=== PATIENT | female | born 1995 | race Caucasian/White ===

== ENCOUNTER 2017-02-20 11:31 | Outpatient (CLI) | payer OTHER ==
[2017-02-20 12:22] LABS: APPEARANCE,URINE SLIGHTLY-CLOUDY; BILIRUBIN,URINE NEGATIVE (NEGATIVE); GLUCOSE, URINE NEGATIVE (NEGATIVE); KETONES,URINE NEGATIVE (NEGATIVE); LEUKOCYTE ESTERASE,URINE NEGATIVE (NEGATIVE); NITRITE,URINE NEGATIVE (NEGATIVE); PROTEIN,URINE NEGATIVE (NEGATIVE); URINE SPECIFIC GRAVITY 1.011; UROBILINOGEN,URINE NEGATIVE mg/dL (<2.0)
[2017-02-20 12:23] LABS: AMNISURE (ROM) NEGATIVE (NEGATIVE)
--- NOTE | 2017-02-20 12:51 | Non Stress Test Report ---
Non Stress Test Datetime Report Generated by CPN: 02/20/2017 12:51 DEMOGRAPHIC EGA NST: 37.1 INDICATION Indication for Study: Other Indication for Study (NST) Other: LABOR CHECK- ?SROM MONITORING Monitor Explained: Monitor Explained; Test Explained; Patient Verbalized Understanding Time on Monitor: 02/20/2017 11:58 Time off Monitor: 02/20/2017 12:29 NST Duration: 31 NST INTERVENTIONS NST Interventions: PO Hydration; Reposition Patient Physician Notified NST: J HUA, CNM BABY A: [id number] BABY A Movement : Present Contraction Frequency : RARE FHR Baseline : 135 Accelerations : 10X10 Decelerations : None Variability : Moderate 6-25bpm NST Review: Meets Criteria for Reactive NST NST Review and Verified By : D Bellavance RNC NST REPORT Report Trigger: Send Report
[2017-02-20 12:59] LABS: URINE BARBITURATES SCREEN NEGATIVE; URINE METHADONE SCREEN NEGATIVE; URINE OPIATES LOW NEGATIVE; URINE PHENCYCLIDINE SCREEN NEGATIVE
== END 2017-02-20 12:35 | disposition home or self-care (01) ==
LOC: LC 11:31
PROVIDERS: ATTEND Student in an Organized Health Care Education/Training Program
PROC: 4A1HXCZ Monitoring of Products of Conception, Cardiac Rate, External Approach (ICD-10-PCS; principal; 2017-02-20)
DX: Z36 Encounter for antenatal screening of mother (principal); Z3A.37 37 weeks gestation of pregnancy
CPT/HCPCS: 59025; 80307; 81005; 84112

== ENCOUNTER 2017-02-25 15:44 | Outpatient (CLI) | payer OTHER ==
[2017-02-25 16:08] LABS: APPEARANCE,URINE CLOUDY; BILIRUBIN,URINE NEGATIVE (NEGATIVE); GLUCOSE, URINE NEGATIVE (NEGATIVE); KETONES,URINE 80 mg/dL (NEGATIVE); LEUKOCYTE ESTERASE,URINE SMALL (NEGATIVE); NITRITE,URINE NEGATIVE (NEGATIVE); PROTEIN,URINE NEGATIVE (NEGATIVE); URINE SPECIFIC GRAVITY 1.013; UROBILINOGEN,URINE NEGATIVE mg/dL (<2.0)
[2017-02-25 16:24] LABS: URINE BARBITURATES SCREEN NEGATIVE; URINE METHADONE SCREEN NEGATIVE; URINE OPIATES LOW NEGATIVE; URINE PHENCYCLIDINE SCREEN NEGATIVE
--- NOTE | 2017-02-25 17:30 | Non Stress Test Report ---
Non Stress Test Datetime Report Generated by CPN: 02/25/2017 17:30 DEMOGRAPHIC EGA NST: 37.6 INDICATION Indication for Study: Other Indication for Study (NST) Other: LC MONITORING Monitor Explained: Monitor Explained; Test Explained; Patient Verbalized Understanding Time on Monitor: 02/25/2017 16:01 Time off Monitor: 02/25/2017 16:35 NST Duration: 34 NST INTERVENTIONS NST Interventions: None; IV Fluids; Reposition Patient Physician Notified NST: Dr Baez BABY A: [id number] BABY A Movement : Present Contraction Frequency : x0 FHR Baseline : 110 Accelerations : 15X15 Decelerations : None Variability : Moderate 6-25bpm NST Review: Meets Criteria for Reactive NST NST Review and Verified By : Mariam Maza RN NST Results: Reactive NST REPORT Report Trigger: Send Report
== END 2017-02-25 18:04 | disposition home or self-care (01) ==
LOC: LC 15:44
PROVIDERS: ATTEND Obstetrics & Gynecology
PROC: 4A1HXCZ Monitoring of Products of Conception, Cardiac Rate, External Approach (ICD-10-PCS; principal; 2017-02-25)
DX: O26.893 Other specified pregnancy related conditions, third trimester (principal); R11.2 Nausea with vomiting, unspecified; Z3A.37 37 weeks gestation of pregnancy
CPT/HCPCS: 59025; 80307; 81005

== ENCOUNTER 2017-03-11 05:43 | Inpatient (IN) | payer OTHER ==
[2017-03-11 06:22] LABS: APPEARANCE,URINE CLEAR; BILIRUBIN,URINE NEGATIVE (NEGATIVE); GLUCOSE, URINE NEGATIVE (NEGATIVE); KETONES,URINE NEGATIVE (NEGATIVE); LEUKOCYTE ESTERASE,URINE NEGATIVE (NEGATIVE); NITRITE,URINE NEGATIVE (NEGATIVE); PROTEIN,URINE NEGATIVE (NEGATIVE); URINE SPECIFIC GRAVITY 1.013; UROBILINOGEN,URINE NEGATIVE mg/dL (<2.0)
[2017-03-11 06:41] LABS: URINE BARBITURATES SCREEN NEGATIVE; URINE METHADONE SCREEN NEGATIVE; URINE OPIATES LOW NEGATIVE; URINE PHENCYCLIDINE SCREEN NEGATIVE
[2017-03-11] MEDS ORDERED: PENICILLIN G-K 5 MILLION UNIT VIAL ONE ×2 (08:46→12:52)
[2017-03-11] MEDS ORDERED: RINGERS SOLUTION,LACTATED 1,000 ML IV ONE (08:50)
[2017-03-11] MEDS ORDERED: RINGERS SOLUTION,LACTATED 1,000 ML IV PRN (08:50)
[2017-03-11] MEDS ORDERED: PENICILLIN G POTASSIUM 5,000,000 UNIT in DEXTROSE 5%-WATER 100 ML IV ONE (08:50)
[2017-03-11 09:46] LABS: ABSOLUTE LYMPHOCYTES (AUTO) 1.9 10^3/uL (0.5-4.7); ABSOLUTE MONOCYTES (AUTO) 0.7 10^3/uL (0.1-1.4); BASOPHILS % (AUTO) 0.1 % (0-2); EOSINOPHILS % (AUTO) 0.3 % (0-6); HEMATOCRIT 31.4 % (36.0-47.0); HGB HCT DIFFERENCE -1.4; LYMPHOCYTES % (AUTO) 16.3 % (13-45); MEAN CORPUSCULAR HEMOGLOBIN 25.7 pg (27.0-33.4); MEAN CORPUSCULAR HGB CONC 31.7 g/dL (32.0-36.0); MEAN CORPUSCULAR VOLUME 81 fl (80-97); MONOCYTES % (AUTO) 5.6 % (3-13); RED BLOOD COUNT 3.88 10^6/uL (3.72-5.28); RED CELL DISTRIBUTION WIDTH 16.9 % (11.5-14.0); SEGMENTED NEUTROPHILS % (AUTO) 77.7 % (42-78); WHITE BLOOD COUNT 11.6 10^3/uL (4.0-10.5)
[2017-03-11] MEDS ORDERED: OXYTOCIN/NORMAL SALINE 20 UNIT/1,000 ML RTUINJ ONE (11:19)
[2017-03-11] MEDS ORDERED: EPHEDRINE SULFATE INJ 50 MG/1 ML AMPULE ONE (11:19)
[2017-03-11] MEDS ORDERED: MISOPROSTOL 0.2 MG TABLET ONE (11:19)
[2017-03-11] MEDS ORDERED: FENTANYL/BUPIVACAINE/NS/PF 200 MCG/100 ML RTUINJ EPI ONE (11:19)
[2017-03-11] MEDS ORDERED: BUPIVACAINE HCL 0.25 % INJ/PF (2.5 MG/1 ML) 30 ML VIAL ONE (11:19)
[2017-03-11] MEDS ORDERED: LIDOCAINE 1% INJ-PF (10 MG/ML) 30 ML SDV ONE (11:20)
[2017-03-11] MEDS ORDERED: PENICILLIN G POTASSIUM 2,500,000 UNIT in DEXTROSE 5%-WATER 50 ML IV SCH (12:51)
[2017-03-11] MEDS ORDERED: ONDANSETRON HCL INJ/PF 4 MG/2 ML SDV ONE (13:39)
[2017-03-11] MEDS ORDERED: MEASLES,MUMPS&RUBELLA VACC/PF 0.5 ML VIAL SUBCUT PRN (15:35)
[2017-03-11] MEDS ORDERED: DIBUCAINE 1% OINTMENT 28 GM TP PRN (15:35)
[2017-03-11] MEDS ORDERED: OXYTOCIN/NORMAL SALINE 1,000 ML IV PRN (15:35)
[2017-03-11] MEDS ORDERED: ZOLPIDEM TARTRATE 5 MG TABLET PO PRN (15:35)
[2017-03-11] MEDS ORDERED: BENZOCAINE/MENTHOL AEROSOL SPRAY 56 ML TOP PRN (15:35)
[2017-03-11] MEDS ORDERED: DIPH/PERTUSS(ACELL)/TETANUS VAC/PF 0.5 ML SYR (>=10YO) IM PRN (15:35)
[2017-03-11] MEDS ORDERED: IBUPROFEN 800 MG TABLET ONE (16:35)
--- NOTE | 2017-03-11 16:48 | Delivery Summary ---
Del Sum A-C Datetime Report Generated by CPN: 03/11/2017 16:47 DELIVERY PERSONNEL DELIVERY PERSONNEL: [phone] Delivery Doctor:: Lindsay Richard CNM Labor and Delivery Nurse:: Yuliya Santillan RNmaterials development engineer Nurse:: YARELIS Cintron Nursery Nurse:: Chelsey Lou RN MATERNAL INFORMATION Delivery Anesthesia: Epidural Medications After Delivery: Pitocin Bolus-Please Comment Meds After Delivery Comment: Pitocin 20 units in 1 L NS Estimated Blood Loss (ml): 300 Maternal Complications: None Provider Comments: pt pushing- fairly well with epidural MAGDY- delivery of viable female after resuscitative measures deepak position suprapubic pressure delivery of anterior arm poor maternal effort at this time to abdomen tactile stimulation elicits spontaneous cry placenta to pathology apgars 6/9 nursery to room infant to nicu placenta pendleton trailing membranes fundus firming no repairs ebl 300 cc hemostasis achieved LABOR SUMMARY EDC: 03/12/2017 00:00 No. Babies in Womb: 1 Attempted: No Labor Anesthesia: Epidural LABOR INFORMATION Reason for Induction: Not Applicable Onset of Labor: 03/11/2017 02:00 Complete Dilatation: 03/11/2017 14:13 Oxytocin: Augmentation Group B Beta Strep: postive Antibiotics # of Doses: 2 Antibiotics Time of Last Dose: 1251 Name of Antibiotic Given: PCN Steroids Given: None Reason Steroids Not Administered: Not Applicable MEMBRANES Membranes Rupture Method: Artificial Rupture of Membranes: 03/11/2017 13:10 Length of Rupture (hr): 1.25 Amniotic Fluid Color: Clear Amniotic Fluid Amount: Small Amniotic Fluid Odor: Normal STAGES OF LABOR Stage 1 hr: 12 Stage 1 min: 13 Stage 2 hr: 0 Stage 2 min: 12 Stage 3 hr: 0 Stage 3 min: 2 Total Time in Labor hr: 12 Total Time in Labor min: 27 VAGINAL DELIVERY Episiotomy: None Laceration Extension: N/A Laceration Type: None Laceration Repair: Not Applicable Sponge Count Correct: N/A Sharps Count Correct: N/A CSECTION DELIVERY Primary Indication: N/A Secondary Indication: N/A CSection Incidence: N/A Labor: N/A Elective: N/A CSection Incision: N/A BABY A INFORMATION Delivery Date/Time: 03/11/2017 14:25 Method of Delivery: Vaginal Born in Route : No : N/A Forceps: N/A Vacuum Extraction: N/A Shoulder Dystocia : Yes SHOULDER DYSTOCIA BABY A Delivery of Head: 03/11/2017 14:24 Time Head to Delivery : 1.0 1st Intervention to Resolve: Gentle Attempt at Traction, Assisted by Maternal Expulsive Efforts 2nd Intervention to Resolve: McRobert's Maneuver 3rd Intervention to Resolve: Suprapubic Pressure Verify NO Fundal Pressure: No Fundal Pressure Applied Arm Under Symphisis at Del: Left Shoulder Dystocia Comments: shoulder dystocia 1 minute 26 seconds PRESENTATION/POSITION BABY A Presentation: Cephalic Cephalic Presentation: Vertex Vertex Position: Right Occipital Anterior Breech Presentation: N/A PLACENTA INFORMATION BABY A Placenta Delivery Time : 03/11/2017 14:27 Placenta Method of Delivery: Expressed Placenta Status: Delivered SCORES BABY A Heart Rate 1 min: >100 bpm Resp Effort 1 min: Slow, Irregular Reflex Irritability 1 min: Cough or Sneeze or Pulls Away Muscle Tone 1 min: Some Flexion of Extremities Color 1 min: Blue/Pale Resuscitation Effort 1 min: Tactile Stimulation SCORE 1 MIN: 6 Heart Rate 5 min: >100 bpm Resp Effort 5 min: Good Cry Reflex Irritability 5 min: Cough or Sneeze or Pulls Away Muscle Tone 5 min: Active Motion Color 5 min: Body [place], Extremities Blue Resuscitation Effort 5 min: Tactile Stimulation; Oxygen SCORE 5 MIN: 9 INFANT INFORMATION BABY A Gestational Age at Delivery: 39.6 Gestational Status: Full Term- 39- 40.6 Weeks Infant Outcome : Liveborn Condition : Stable Sex: Female IDENTIFICATION BABY A Infant Verification Date/Time: 03/11/2017 15:07 ID Band Number: [id number] Mother's Name Verified: Yes Infant RN Verifying Infant: Mariam Chelle HARDWICK Additional Verifying Personnel: Malou Santillan RN WEIGHT/LENGTH BABY A Birthweight (gm): 4474 Infant Weight (lb): 9 Weight (oz): 14 Infant Length (in): 22.00 Infant Length (cm): 55.88 CORD INFORMATION BABY A No. Cord Vessels: 3 Nuchal Cord : N/A Cord Blood Taken: Yes-For Eval (Mom's Blood Type - or O+) Infant Suction: Mouth; Nose ASSESSMENT BABY A Complications: None Physical Findings at Delivery: Within Normal Limits Respirations: Intercostal Retractions; Nasal Flaring Skin to Skin: No Skin to Skin Time (min): 0 Seater Assembler/ALS Called : No Infant Care By: Jennifer Lou RN Transferred To: [facility] BABY B INFORMATION : N/A SIGNATURES Assignment: Darryn Baez MD Signature: with User ID: [email or web address] : with User ID: [email or web address]
--- NOTE | 2017-03-11 17:19 | Admission Physical ---
Datetime Report Generated by CPN: 03/11/2017 17:18 CURRENT ADMISSION Chief Complaint: Uterine Contractions Indication for Induction: Not Applicable Admit Plan: Admit to Unit; Initiate Labor Protocol ALLERGIES Medication Allergies: No Medication Allergies: No Known Allergies (03/11/2017) Medication Allergies: No Known Allergies (02/25/2017) Medication Allergies: No Known Allergies (02/20/2017) Medication Allergies: No Known Allergies (09/19/2016) Latex: No Latex Allergies OBSTETRICAL HISTORY EDC: 03/12/2017 00:00 : 3 Para: 1 Term: 1 : 0 SAB: 1 IAB: 0 Livin Gestational Diabetes: No Rh Sensitization: No Incompetent Cervix: No JCARLOS: No Infertility: No ART Treatment: No Uterine Anomaly: No IUGR: No Hx Previous C/S: No Macrosomia: No Hx Loss/Stillborn: No PIH: No Hx : No Placenta Previa/Abruption: No Depression/PP Depression: No PTL/PROM: No Post Hemorrhage: No Current Procedures: Ultrasound Obstetrical History Comments: close spaced pregnancies G1: 2013 G2: 01/16/16 G3: current SEE RECORDS Alcohol: No Marijuana : No Cocaine: No Other Illicit Drugs: No Cigarettes: Former Smoker. [id number] MEDICAL HISTORY Diabetes: No Blood Transfusion: No Pulmonary Disease (Asthma, TB): No Breast Disease: No Hypertension: No Household Appliance Assembler Surgery: No Heart Disease: No Hosp/Surgery: Yes Autoimmune Disorder: No Anesthetic Complications: No Kidney Disease: No Abnormal Pap Smear: No Neuro/Epilepsy: No Psychiatric Disorders: No Other Medical Diseases: No Hepatitis/Liver Disease: No Significant Family History: No Varicosities/Phlebitis: No Trauma/Violence : No Thyroid Dysfunction: No Medical History Comments: Gallbladder surgery INFECTIOUS HISTORY Gonorrhea: No Genital Herpes: Yes Chlamydia: No Tuberculosis: No Syphilis: No Hepatitis: No HIV/AIDS Exposure: No Rash or Viral Illness: No 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 PHYSICAL EXAM General: Normal HEENT: Normal Neurologic: Normal Thyroid: Normal Heart: Normal Lungs: Normal Breast: Normal Back: Normal Abdomen: Normal Genitourinary Exam: Normal Extremities: Normal DTRs: Normal Pelvic Type: Adequate VAGINAL EXAM Dilatation: 5 Effacement: 80 MEMBRANES Membranes: Intact FETUS A EGA: 39.6 Monitoring: External US FHR- Baseline: 120 Variability: Moderate 6-25bpm FHR Category: Category I Presentation: Vertex Admit Comment: 22 yo presents with regular contractions history of close spaced EDC per 7 week u/s +GBS Term Obesity gbs prophylaxis Admit anticipate risks and benefits reviewed PLANS FOR LABOR AND DELIVERY Labor and Delivery: Plan Pain Management: Epidural Feeding Preference: Breast Benefit of Breast Feed Discussed: Yes Circumcision: N/A INFORMED CONSENT Assignment: Darryn Baez MD Signature: with User ID: [email or web address] : with User ID: [email or web address]
[2017-03-11] MEDS: DOCUSATE SODIUM 100 MG CAPSULE PO SCH (18:50)
[2017-03-11] MEDS: FERROUS SULFATE 325 MG TABLET PO SCH (18:50)
[2017-03-11] MEDS: PENICILLIN G-K 5 MILLION UNIT VIAL IV SCH (23:44)
[2017-03-11] MEDS: IBUPROFEN 800 MG TABLET PO SCH (23:44)
[2017-03-12] MEDS: PENICILLIN G-K 5 MILLION UNIT VIAL IV SCH ×2 (00:34→06:04)
[2017-03-12] MEDS ORDERED: ACETAMINOPHEN WITH CODEINE #3 TABLET PO PRN (02:08)
[2017-03-12] MEDS: IBUPROFEN 800 MG TABLET PO SCH ×3 (06:19→22:20)
[2017-03-12 06:32] LABS: HEMATOCRIT 29.7 % (36.0-47.0); HEMOGLOBIN 9.4 g/dL (12.0-15.5); HGB HCT DIFFERENCE -1.5; MEAN CORPUSCULAR HEMOGLOBIN 25.8 pg (27.0-33.4); MEAN CORPUSCULAR HGB CONC 31.6 g/dL (32.0-36.0); MEAN CORPUSCULAR VOLUME 82 fl (80-97); RED BLOOD COUNT 3.65 10^6/uL (3.72-5.28); RED CELL DISTRIBUTION WIDTH 16.6 % (11.5-14.0); WHITE BLOOD COUNT 11.6 10^3/uL (4.0-10.5)
[2017-03-12] MEDS: SENNOSIDES/DOCUSATE 8.6-50 MG 1 EACH TABLET PO SCH (09:34)
[2017-03-12] MEDS: PRENATAL VITAMIN W-O CA NO5/FE FUMARATE/FA CAPSULE PO SCH (09:34)
[2017-03-12] MEDS: DOCUSATE SODIUM 100 MG CAPSULE PO SCH ×2 (09:35→17:20)
[2017-03-12] MEDS: FERROUS SULFATE 325 MG TABLET PO SCH ×2 (09:37→17:01)
--- NOTE | 2017-03-12 09:38 | PDOC PROGRESS REPORT ---
Subjective-OB Subjective: Post Delivery Day: 1 22 year old. Denies any needs at this time, states lochia is stable, pain is well controlled, voiding without difficulty. Physical Exam (OB) Vital Signs: Temp Pulse Resp BP Pulse Ox 98.2 F 85 16 116/55 L 100 03/12/17 08:12 03/12/17 08:12 03/12/17 08:12 03/12/17 08:12 03/12/17 08:12 Intake & Output 03/11/17 03/12/17 03/13/17 06:59 06:59 06:59 Weight 120 kg - PIH/Pre-Eclampsia DTR's: 1 + Clonus: Negative Headache: Absent Epigastric Pain: No Visual Changes: No - Lochia Lochia Amount: Scant < 10 ml Lochia Color: Rubra/Red - Abdomen Description: Soft Hernia Present: No Fundal Description: Firm, Midline Fundal Height: u/u - u/2 Objective-Diagnostic Laboratory: 03/12/17 06:28 03/11/17 03/11/17 03/12/17 09:31 09:31 06:28 WBC 11.6 H 11.6 H RBC 3.88 3.65 L Hgb 10.0 L 9.4 L Hct 31.4 L 29.7 L MCV 81 82 MCH 25.7 L 25.8 L MCHC 31.7 L 31.6 L RDW 16.9 H 16.6 H Plt Count 140 L 130 L Seg Neutrophils % 77.7 Lymphocytes % 16.3 Monocytes % 5.6 Eosinophils % 0.3 Basophils % 0.1 Absolute Neutrophils 9.0 H Absolute Lymphocytes 1.9 Absolute Monocytes 0.7 Absolute Eosinophils 0.0 Absolute Basophils 0.0 Blood Type O POSITIVE Antibody Screen NEGATIVE Assessment and Plan(PN) - Assessment and Plan (1) Shoulder (girdle) dystocia during labor and delivery Is this a current diagnosis for this admission?: YesPlan: n/a (2) Anemia Qualifiers: Chronic kidney disease stage: unspecified stage Is this a current diagnosis for this admission?: YesPlan: ferrous sulfate increase dietary iron (3) Delivery normal Is this a current diagnosis for this admission?: YesPlan: routine pp care - Time Spent with Patient Time with patient: Less than 15 minutes Critical Time spent with patient: Less than 15 minutes Smoking Education Provided: Over 3 minutes Medications reviewed and adjusted accordingly: Yes - Disposition Anticipated Discharge: Home Within: within 24 hours
[2017-03-13] MEDS: IBUPROFEN 800 MG TABLET PO SCH (06:33)
[2017-03-13 08:07] VITALS: BP 104/53
--- NOTE | 2017-03-13 09:50 | PDOC PROGRESS REPORT ---
Subjective-OB Subjective: Post Delivery Day: 22 year old. Denies any needs at this time Doing well, no c/o, ready to go home, feels like she needs to restart Zoloft, unsure if baby is going home today, she needs to go cause she has a baby at home that needs her. Hsb at BS, needs breast pump rx Physical Exam (OB) Vital Signs: Temp Pulse Resp BP Pulse Ox 97.8 F 56 L 16 104/53 L 99 03/13/17 07:35 03/13/17 07:35 03/13/17 07:35 03/13/17 07:35 03/13/17 07:35 - PIH/Pre-Eclampsia DTR's: 1 + Clonus: Negative Headache: Absent Epigastric Pain: No Visual Changes: No - Lochia Lochia Amount: Scant < 10 ml Lochia Color: Rubra/Red - Abdomen Description: Soft, Round Hernia Present: No Fundal Description: Firm, Midline Fundal Height: u/u - u/2 Objective-Diagnostic Laboratory: 03/12/17 06:28 Assessment and Plan(PN) - Assessment and Plan (1) Anemia Qualifiers: Chronic kidney disease stage: unspecified stage Is this a current diagnosis for this admission?: Yes (2) Delivery normal Is this a current diagnosis for this admission?: Yes (3) Shoulder (girdle) dystocia during labor and delivery Is this a current diagnosis for this admission?: Yes - Time Spent with Patient Time with patient: Less than 15 minutes Smoking Education Provided: Over 3 minutes Medications reviewed and adjusted accordingly: Yes - Disposition Anticipated Discharge: Home Within: Other - home today
[2017-03-13] MEDS: DOCUSATE SODIUM 100 MG CAPSULE PO SCH (09:51)
[2017-03-13] MEDS: SENNOSIDES/DOCUSATE 8.6-50 MG 1 EACH TABLET PO SCH (09:51)
[2017-03-13] MEDS: PRENATAL VITAMIN W-O CA NO5/FE FUMARATE/FA CAPSULE PO SCH (09:51)
[2017-03-13] MEDS: FERROUS SULFATE 325 MG TABLET PO SCH (09:51)
--- NOTE | 2017-03-13 09:55 | PDOC DISCHARGE SUMMARY ---
Final Diagnosis Discharge Date: 03/13/17 - Final Diagnosis (1) Anemia Is this a current diagnosis for this admission?: Yes (2) Delivery normal Is this a current diagnosis for this admission?: Yes (3) Shoulder (girdle) dystocia during labor and delivery Is this a current diagnosis for this admission?: Yes Discharge Data - Discharge Medication Home Medications: Ferrous Sulfate [Iron] 1 tab PO BID 02/20/17 No.40/Iron/FA/Dha [ Multi-Dha Softgel] 1 cap PO DAILY 02/20/17 Valacyclovir HCl [Valtrex] 1 tab PO DAILY 02/20/17 Sertraline HCl [Zoloft 50 mg Tablet] 25 mg PO DAILY #0 tablet 03/13/17 Gestational Age: 39.6 Reason(s) for Admission: Onset of Labor, Group B Strep Positive, Shoulder dystocia Procedures: NST, Ultrasound Intrapartum Procedure(s): Spontaneous Vaginal Delivery - [place] Data Baby 1 Female at 1 minute: 6 at 5 minutes: 9 Weight: 4.479 kg Home with Mother: No Complications: Yes - jaundice - Diagnosis Test Laboratory: Temp Pulse Resp BP Pulse Ox 97.8 F 56 L 16 104/53 L 99 03/13/17 07:35 03/13/17 07:35 03/13/17 07:35 03/13/17 07:35 03/13/17 07:35 03/11/17 03/11/17 03/12/17 05:54 09:31 06:28 RBC 3.88 3.65 L Hgb 10.0 L 9.4 L Hct 31.4 L 29.7 L Urine Opiates Screen NEGATIVE - Discharge information/Instructions Discharge Activity: No Lifting Over 10 Pounds, No Lifting/Push/Pulling Discharge Diet: As Tolerated, Regular Disposition: HOME, SELF-CARE Follow [facility]: [facility] in: 4, Weeks
[2017-03-13] MEDS ORDERED: SERTRALINE HCL 50 MG TABLET PO SCH (10:00)
== END 2017-03-13 11:59 | disposition home or self-care (01) | DRG 774 ==
LOC: LC 05:43 → LR 08:24 → 2S 17:17
PROVIDERS: ADMIT Obstetrics & Gynecology; ATTEND Obstetrics & Gynecology
PROC: 10E0XZZ Delivery of Products of Conception, External Approach (ICD-10-PCS; principal; 2017-03-11)
PROC: 4A1HXCZ Monitoring of Products of Conception, Cardiac Rate, External Approach (ICD-10-PCS; 2017-03-11)
DX: O99.824 Streptococcus B carrier state complicating childbirth (principal); O98.52 Other viral diseases complicating childbirth; O66.0 Obstructed labor due to shoulder dystocia; O99.02 Anemia complicating childbirth; B00.9 Herpesviral infection, unspecified; D64.9 Anemia, unspecified; N18.9 Chronic kidney disease, unspecified; D63.1 Anemia in chronic kidney disease; E66.9 Obesity, unspecified; O99.214 Obesity complicating childbirth; Z3A.39 39 weeks gestation of pregnancy; Z87.891 Personal history of nicotine dependence; Z37.0 Single live birth
CPT/HCPCS: 36415; 80307; 81005; 85025; 85027; 86592; 86850; 86900; 86901; 88307; 94760; J2405; J2540; J2590; J3490